=== PATIENT | male | born 1975 | race African-American/Black ===

== ENCOUNTER 2024-03-04 08:49 | Emergency (ER) | payer SELFPAY ==
[2024-03-04 08:59] VITALS: BMI 20.8
[2024-03-04] MEDS ORDERED: EPINEPHrine/PF 1 MG/1 ML (1:1,000) AMPULE ONE (09:21)
[2024-03-04] MEDS: EPINEPHrine 1:1,000 1,000 MCG/ML ML SQ ONE ×2 (09:29→09:39)
[2024-03-04] MEDS ORDERED: DEXAMETHASONE SOD PHOSPHATE 10 MG/1 ML VIAL ONE (09:31)
[2024-03-04] MEDS ORDERED: FAMOTIDINE 20 MG/50 ML IVPB 20 MG/50 ML MG IVPB ONE (09:31)
[2024-03-04] MEDS: FAMOTIDINE 20 MG/50 ML IVPB 20 MG/50 ML MG IVPB ONE (09:38)
[2024-03-04] MEDS: DEXAMETHASONE SOD PHOSPHATE 10 MG/1 ML VIAL IVPUSH ONE (09:43)
[2024-03-04] MEDS ORDERED: ACETAMINOPHEN INJECTION 100 ML IVPB ONE (10:17)
[2024-03-04] MEDS: ACETAMINOPHEN 1000 MG/100 ML BAG IVPB ONE (10:20)
[2024-03-04 14:02] VITALS: BP 113/70; PULSE 74; RESP 20; TEMP 98.2
== END 2024-03-04 14:14 | disposition home or self-care (01) ==
LOC: JER 08:49
PROC: 3E033GC Introduction of Other Therapeutic Substance into Peripheral Vein, Percutaneous Approach (ICD-10-PCS; principal; 2024-03-04)
PROC: 3E033GC Introduction of Other Therapeutic Substance into Peripheral Vein, Percutaneous Approach (ICD-10-PCS; 2024-03-04)
PROC: 3E033GC Introduction of Other Therapeutic Substance into Peripheral Vein, Percutaneous Approach (ICD-10-PCS; 2024-03-04)
PROC: 3E033NZ Introduction of Analgesics, Hypnotics, Sedatives into Peripheral Vein, Percutaneous Approach (ICD-10-PCS; 2024-03-04)
PROC: 3E013GC Introduction of Other Therapeutic Substance into Subcutaneous Tissue, Percutaneous Approach (ICD-10-PCS; 2024-03-04)
DX: T78.2XXA Anaphylactic shock, unspecified, initial encounter (principal); L30.9 Dermatitis, unspecified
CPT/HCPCS: 99291; J0131; J1100